=== PATIENT | male | born 1970 | race Two or more races ===

== ENCOUNTER 2023-08-28 15:40 | Emergency (ER) | payer OTHER ==
[~2023-08-28] VITALS: Ht 175.3 cm; Wt 90.7 kg
[2023-08-28 17:21] LABS: HEMATOCRIT 47.3 % (39.0-48.0); HEMOGLOBIN 15.9 g/dL (13-16.00); MEAN CORPUSCULAR HEMOGLOBIN 28.3 pg (27.00-32.0); MEAN CORPUSCULAR HGB CONC 33.6 g/dl (32.0-36.0); PLATELET COUNT 212 K/uL (150-450); RED BLOOD COUNT 5.63 M/uL (4.00-6.00); RED CELL DISTRIBUTION WIDTH 14.3 % (11.5-14.5)
[2023-08-28 17:57] LABS: ALBUMIN 3.6 gm/dL (3.4-5.0); BILIRUBIN TOTAL 0.32 mg/dL (0.3-1.2); CALCIUM 8.7 mg/dL (8.5-10.1); CREATININE SERUM 1.28 mg/dL (0.70-1.30); GFR 59.49; GLOBULINA 4.3 G/DL (2.4-3.5); POTASSIUM 3.8 mEq/L (3.5-5.1); TOTAL PROTEIN 7.9 gm/dL (6.4-8.2)
[2023-08-28] MEDS ORDERED: INTESTINEX680 M1 PO (19:22)
[2023-08-28] MEDS ORDERED: PEPCID AC20 MG PO (19:22)
== END 2023-08-28 19:39 | disposition home or self-care (01) ==
LOC: ER 15:40
PROVIDERS: General Practice
DX: R19.7 Diarrhea, unspecified (principal)